=== PATIENT | female | born 1940 | race Caucasian/White ===

== ENCOUNTER 2017-09-24 11:55 | Emergency (ER) | payer OTHER ==
[~2017-09-24] VITALS: Ht 154.9 cm; Wt 54.0 kg
[~2017-09-24 11:55] MED LIST: ASPIR 8181 MG PO; ASPIRIN325 PO; BIOTIN5 M1 PO; CIPROFLOXACIN500 M1 PO; CLONAZEPAM 0.50.5 M1 PO; DIGOXIN; ELIQUIS2.5 MG PO; FLAGYL500 MG PO; LISINOPRIL2.5 MG PO; LISINOPRIL5 MG PO; MIRALAX17 GM PO; NORCO 5-325 TA1 EACH PO; OSTERA TABLET1 EAC1 PO; PROBIOTIC1 EAC1 PO; TOPROL XL25 MG PO; TRAMADOL 50 MG50 MG PO; VITAMIN C100 MG PO; XANAX 0.25 MG0.25 MG PO; ZOFRAN4 MG PO
[2017-09-24 12:29] LABS: URINE BILIRUBIN NEGATIVE (Negative); URINE BLOOD NEGATIVE (Negative); URINE CLARITY CLEAR; URINE COLOR YELLOW; URINE GLUCOSE-RANDOM NEGATIVE (Negative); URINE KETONES NEGATIVE (Negative); URINE LEUKOCYTES-REFLEX TRACE (Negative); URINE NITRITE-REFLEX NEGATIVE (Negative); URINE PROTEIN NEGATIVE (Negative); URINE SPECIFIC GRAVITY <= 1.005 (1.005-1.030); URINE UROBILINOGEN 0.2 E.U./dl (0.2-1.0)
[2017-09-24 12:37] LABS: SQUAMOUS >10 Many /LPF (0-3)
[2017-09-24 12:38] LABS: BACTERIA-REFLEX None Seen /HPF (None Seen); CASTS None Seen /LPF (None Seen); CRYSTALS None Seen /LPF (None Seen); TRANSITIONAL EPITHEL CELL 0-3 Few /LPF (None Seen); URINE RBC None Seen /HPF (0-2); URINE WBC-REFLEX 0-5 Rare /HPF (0-5)
[2017-09-24 12:40] LABS: ABSOLUTE BASOPHILS 0.1 thou/uL (0.0-0.2); ABSOLUTE EOSINOPHILS 0.1 thou/uL (0.0-0.7); ABSOLUTE LYMPHOCYTES 1.8 thou/uL (0.8-5.3); ABSOLUTE MONOCYTES 0.5 thou/uL (0.0-1.2); ABSOLUTE NEUTROPHILS 4.5 thou/uL (1.6-8.1); BASOPHILS 0.9 %; EOSINOPHILS 1.9 %; HEMATOCRIT 40.6 % (37.0-47.0); HEMOGLOBIN 13.6 gm/dL (12.0-15.0); LYMPHOCYTES 26.2 %; MCH 31.3 pg (26.0-34.0); MCHC 33.5 g/dL (28.0-37.0); MCV 93.4 fL (80.0-100.0); MONOCYTES 7.6 %; MPV 8.7 fl. (7.2-11.1); NUCLEATED RBCS 0 /100WBC; PLATELET COUNT* 251 thou/uL (150-400); POLYS 63.4 %; RBC 4.34 mil/uL (4.20-5.00); RDW-CV 12.9 % (10.5-14.5)
[2017-09-24 12:47] LABS: CALCIUM 8.5 mg/dL (8.5-10.1); CREATININE 0.7 mg/dL (0.6-1.3)
[2017-09-24 12:52] LABS: ALBUMIN 3.7 g/dL (3.4-5.0); TOTAL BILIRUBIN 0.2 mg/dL (<0.1-1.0); TOTAL PROTEIN 6.9 g/dL (6.4-8.2)
[2017-09-24 13:33] VITALS: BP 151/78
--- NOTE | 2017-09-24 14:29 | EKG ---
[place] [address] ELECTROCARDIOGRAM REPORT Name: RAMAKRISHNA CARTER Room: [facility]#: [id number] Admission: 09/24/17 Attend Phys: Discharge: 09/24/17 Date of : 42 Report #: [id number] THIS REPORT FOR: //name// [facility] ED Test Date: 2017-09-24 Test Time: 12:25:50 Pat Name: RAMAKRISHNA CARTER Department: Room: Gender: F V Belt Inspector: Brooke YIER : 1940 Requested By: Gema Rivera Order Number: [id number] MD: Keon Jones Measurements Intervals [place] Rate: 63 P: -3 LA: 250 QRS: -38 QRSD: 124 T: 139 QT: 455 QTc: 466 Interpretive Statements Sinus arrhythmia left axis Atrial premature complexes Prolonged LA interval Left bundle branch block Compared to ECG 06/19/2017 20:42:01 Atrial premature complex(es) now present Electronically Signed On 09-24-2017 14:28:55 [employer] by Keon Jones [email or web address] <ELECTRONICALLY SIGNED> By: Keon Jones MD, [facility] 09/24/17 1428 1225 1225 Keon Jones MD, [facility] /EPI
[2018-03-11] MEDS ORDERED: VOLTAREN GEL 1100 G1 TOP (18:44)
== END 2017-09-24 13:34 | disposition home or self-care (01) ==
LOC: M.ERS 11:55
PROVIDERS: Physician Assistant
DX: I10 Essential (primary) hypertension (principal); Z88.0 Allergy status to penicillin; Z88.8 Allergy status to other drugs, medicaments and biological substances

== ENCOUNTER 2017-10-09 19:03 | Observation (INO) | payer OTHER ==
[~2017-10-09] VITALS: Ht 152.4 cm; Wt 55.8 kg
[2017-10-09 19:05] VITALS: BP 212/122
[2017-10-09 19:39] LABS: ABSOLUTE BASOPHILS 0.1 thou/uL (0.0-0.2); ABSOLUTE EOSINOPHILS 0.1 thou/uL (0.0-0.7); ABSOLUTE LYMPHOCYTES 1.9 thou/uL (0.8-5.3); ABSOLUTE MONOCYTES 0.6 thou/uL (0.0-1.2); BASOPHILS 0.9 %; EOSINOPHILS 1.4 %; HEMATOCRIT 40.5 % (37.0-47.0); HEMOGLOBIN 13.6 gm/dL (12.0-15.0); LYMPHOCYTES 24.5 %; MCH 31.3 pg (26.0-34.0); MCHC 33.5 g/dL (28.0-37.0); MCV 93.5 fL (80.0-100.0); MONOCYTES 7.9 %; NUCLEATED RBCS 0 /100WBC; PLATELET COUNT* 258 thou/uL (150-400); POLYS 65.3 %; RBC 4.33 mil/uL (4.20-5.00); RDW-CV 12.9 % (10.5-14.5); WBC 7.7 thou/uL (4.0-11.0)
[2017-10-09 20:18] LABS: ANION GAP 11 mmol/L (7-16); BUN 14 mg/dL (7-18); CALCIUM 8.6 mg/dL (8.5-10.1); CHLORIDE 95 mmol/L (98-107); CO2 23 mmol/L (21-32); CREATININE 0.7 mg/dL (0.6-1.3); GLUCOSE 131 mg/dL (70-99); POTASSIUM 3.4 mmol/L (3.5-5.1); SODIUM 129 mmol/L (136-145)
[2017-10-09 20:30] LABS: ALBUMIN 3.9 g/dL (3.4-5.0); ALKALINE PHOSPHATASE 73 U/L (46-116); LIPASE 86 U/L (73-393); NT-PRO BRAIN NAT PEPTIDE 1927 pg/mL (<300); SGOT 27 U/L (15-37); SGPT 30 U/L (30-65); TOTAL BILIRUBIN 0.4 mg/dL (<0.1-1.0); TOTAL PROTEIN 7.3 g/dL (6.4-8.2); TROPONIN-I LEVEL <0.06 ng/mL (<0.06)
[2017-10-09 21:27] LABS: URINE BILIRUBIN NEGATIVE (Negative); URINE BLOOD NEGATIVE (Negative); URINE CLARITY CLEAR; URINE COLOR YELLOW; URINE GLUCOSE-RANDOM NEGATIVE (Negative); URINE KETONES 1+ (Negative); URINE LEUKOCYTES-REFLEX NEGATIVE (Negative); URINE NITRITE-REFLEX NEGATIVE (Negative); URINE PROTEIN NEGATIVE (Negative); URINE UROBILINOGEN 0.2 E.U./dl (0.2-1.0)
[2017-10-09 23:53] VITALS: BP 136/53
[2017-10-10 00:15] VITALS: BP 142/54
[2017-10-10] MEDS ORDERED: UNICOMPLEX M TA1 TA1 PO (00:47)
[2017-10-10 03:45] VITALS: BP 144/65
[2017-10-10 05:16] LABS: HEMATOCRIT 36.6 % (37.0-47.0); HEMOGLOBIN 12.2 gm/dL (12.0-15.0); MCHC 33.3 g/dL (28.0-37.0); MCV 93.1 fL (80.0-100.0); MPV 9.1 fl. (7.2-11.1); RBC 3.94 mil/uL (4.20-5.00); RDW-CV 13.1 % (10.5-14.5); WBC 6.2 thou/uL (4.0-11.0)
[2017-10-10 05:52] LABS: ALBUMIN 3.3 g/dL (3.4-5.0); CALCIUM 7.6 mg/dL (8.5-10.1); CREATININE 0.6 mg/dL (0.6-1.3); POTASSIUM 4.1 mmol/L (3.5-5.1); TOTAL BILIRUBIN 0.5 mg/dL (<0.1-1.0); TOTAL PROTEIN 5.8 g/dL (6.4-8.2)
[2017-10-10 08:30] VITALS: BP 136/55
[2017-10-10 10:00] VITALS: BP 136/55
--- NOTE | 2017-10-10 20:14 | EKG ---
[place] [address] ELECTROCARDIOGRAM REPORT Name: RAMAKRISHNA CARTER Room: [address]#: [id number] Admission: 10/09/17 Attend Phys: Naeem Blue MD Discharge: 10/10/17 Date of : 42 Report #: [id number] THIS REPORT FOR: //name// [facility] ED Test Date: 2017-10-09 Test Time: 19:09:12 Pat Name: RAMAKRISHNA CARTER Department: Room: [facility] Gender: F Horticulture Worker: BRUCE Cox : 1940 Requested By: Meena Chairez Order Number: [id number] MD: Raul Iraheta Measurements Intervals [place] Rate: 83 P: 117 CT: 168 QRS: -27 QRSD: 134 T: 137 QT: 455 QTc: 535 Interpretive Statements Sinus rhythm Supraventricular bigeminy Left bundle branch block Compared to ECG 09/24/2017 12:25:50 Sinus arrhythmia no longer present First degree AV block no longer present Electronically Signed On 10-10-2017 20:13:54 DOCTOR OF MEDICINE by Raul Iraheta [email or web address] <ELECTRONICALLY SIGNED> By: Raul Iraheta MD, FACC 10/10/172012 1909 190 Raul Iraheta MD, FAC /EPI
--- NOTE | 2017-10-10 20:15 | EKG ---
[place] [address] ELECTROCARDIOGRAM REPORT Name: RAMAKRISHNA CARTER Room: [address] M.R.#: [id number] Admission: 10/09/17 Attend Phys: Naeem Blue MD Discharge: 10/10/17 Date of : 42 Report #: [id number] THIS REPORT FOR: //name// [facility] Test Date: 2017-10-10 Test Time: 02:16:11 Pat Name: RAMAKRISHNA CARTER Department: Room: [address] Gender: F Telephone Ad Taker: WILFRED : 1940 Requested By: Naeem Blue Order Number: [id number] Jose Manuel MD: Raul Iraheta Measurements Intervals [place] Rate: 49 P: -33 MD: 238 QRS: -36 QRSD: 136 T: 158 QT: 627 QTc: 567 Interpretive Statements Sinus bradycardia Atrial premature complexes Prolonged MD interval Left bundle branch block Compared to ECG 09/24/2017 12:25:50 Sinus arrhythmia no longer present Electronically Signed On 10-10-2017 20:15:03 MAGNET PLACER by Raul Iraheta [email or web address] <ELECTRONICALLY SIGNED> By: Raul Iraheta MD, FACC 10/10/172014 5 Raul Iraheta MD, FAC /EPI
[2018-03-11] MEDS ORDERED: VOLTAREN GEL 1100 G1 TOP (18:44)
== END 2017-10-10 10:36 | disposition home or self-care (01) ==
LOC: M.ERS 19:03 → M.2W 21:38 → M.TBA-ER 21:38 → M.2W 21:38
PROVIDERS: Emergency Medicine; ADMIT Internal Medicine
DX: E87.1 Hypo-osmolality and hyponatremia (principal); I10 Essential (primary) hypertension; I16.0 Hypertensive urgency; Z90.49 Acquired absence of other specified parts of digestive tract; Z85.3 Personal history of malignant neoplasm of breast